=== PATIENT | female | born 1975 | race Caucasian/White ===

== ENCOUNTER → 2016-11-22 | Outpatient (CLI) | payer OTHER ==
--- NOTE | 2016-11-22 16:55 | MAMMOGRAPHY REPORT ---
BILATERAL DIGITAL DIAGNOSTIC MAMMOGRAM TOMOSYNTHESIS WITH CAD AND TARGETED BILATERAL ULTRASOUND: 11/05 CLINICAL HISTORY: 41-year-old woman presents for assessment in both breasts after a bilateral breast MRI demonstrated abnormalities in each breast. She was originally called back from screening mammo graphy for and angular asymmetry and possible distortion in the far posterior medial right breast, b ut no sonographic correlate was identified at an outside institution. Family history of breast canc er = niece. TECHNIQUE: Bilateral CC and MLO 2-D digital and tomosynthesis images were obtained. Current study w as also evaluated with a Computer Aided Detection (CAD) system. COMPARISON: Comparison is made to exams dated: 09/11/2016 breast MRI, 03/07/2016 breast MRI - [facility], 02/12/2016 mammogram, 08/23/2015 mammogram, 02/16/2015 mammogram, and 01/26/2015 m ammogram. BREAST COMPOSITION: There are scattered areas of fibroglandular density in both breasts. FINDINGS: The breast bregma pattern is similar to prior outside mammograms. There is persistent as ymmetry in the slightly medial, far posterior right breast, best seen on the CC view. However, on t he tomosynthesis images this area has the appearance of normal fibroglandular tissue. There is no s uspicious spiculation or architectural distortion. No other suspicious mass, architectural distorti on or cluster of microcalcifications is seen bilaterally. There is an island of effacing fibrogland ular tissue in the far posterior 11:30 to 12:00 left breast which may correlate with the 8 mm irregu lar asymmetry seen on recent breast MRI. No definite abnormality is seen mammographically to correl ate with the 8.5 mm enhancing mass in the 5:00 anterior right breast on MRI. Targeted ultrasound was performed in the upper inner quadrant of the left breast, 5:00 and upper inn er quadrant of the right breast. In the right 5:00 breast, 2 cm from the nipple, there is a curvili near hypoechoic solid versus cystic mass measuring 5.9 x 2.0 x 4.5 mm. This may possibly correlate with the MRI finding and has a benign appearance. Nevertheless, a short interval follow-up is recom mended to ensure stability. There is an island of dense fiber glandular tissue and interspersed hyp oechoic milk ducts in the 12:00 right breast, 9 cm from the nipple, which may cause the appearance o f an asymmetry mammographically. Similar island of dense fibroglandular tissue and interspersed mil k duct is seen in the 11:00 left breast, 12 cm from the nipple, thought to correlate with both the m ammographic asymmetry and possibly the irregular enhancement seen on MRI. Overall, there is no defi nite sonographic evidence of malignancy. Would recommend repeat MRI in 6 months to ensure at least one year stability of the above findings also repeat targeted ultrasound in the left 11:00 and right 5:00 axes with possible additional ultrasound and/or mammographic views pending MRI results. IMPRESSION: ACR-BI-RADS CATEGORY 3: PROBABLY BENIGN, TARGETED ULTRASOUND ACR-BI-RADS CATEGORY 3: HI OBABLY BENIGN A follow-up breast MRI is recommended in 6 months to ensure stability of probably benign findings wi thout suspicious mammographic or sonographic correlates on the current diagnostic exam. Pending fol low-up MRI, repeat targeted ultrasound should at least be performed in the 11:00 left breast and 5:0 0 right breast to ensure stability of those sonographic findings. Overall, there is no definite ben mographic or targeted sonographic evidence of malignancy. These results and recommendations were discussed with the patient at the time of the exam. She tent atively scheduled a follow-up appointment prior to leaving our department. Approximately 10% of breast cancers are not detected with mammography. A negative mammographic repor t should not delay biopsy if a clinically suggestive mass is present. Angela Watkins M.D. ay/:11/22/2016 15:44:29 Crisis Mental Health Therapist: Jada Kimball, [facility] letter sent: Follow Up Recommended 3 BI-RADS Code: ACR-BI-RADS Category 3: Probably Benign Ultrasound BI-RADS: ACR-BI-RADS Category 3: P robably Benign
== END | disposition home or self-care (01) ==
LOC: C.MAMM 14:10
PROVIDERS: ATTEND Surgery
DX: N64.9 Disorder of breast, unspecified (principal)

== ENCOUNTER → 2017-05-23 | Outpatient (CLI) | payer OTHER ==
[~2017-05-23] MED LIST: GADAVIST IV PRN
--- NOTE | 2017-05-24 12:10 | MAMMOGRAPHY REPORT ---
BREAST MRI OF BOTH BREASTS : 05/23/2017 CLINICAL HISTORY: 41-year-old woman presents for follow-up in both breasts. She was initially called back from screening for an asymmetry in the far posterior right breast. No suspicious enhancing mas s was seen on MRI to correlate and this asymmetry appeared less prominent on follow-up mammograms. O n the most recent prior breast MRI, a small, 5 mm enhancing ovoid focus was identified in the 5:00 ri ght breast. Second look ultrasound did not demonstrate any suspicious masses but a probable cyst. A lso follow-up of an angular 8 mm asymmetry versus island of glandular tissue in the upper inner poste rior left breast. No strong family history of breast cancer. COMPARISON: Comparison is made to exams dated: 11/22/2016 ultrasound, 11/22/2016 mammogram, 09/11/2016 breast MRI, 03/07/2016 breast MRI - [facility], 02/12/2016 mammogram, and 08/23/2015 ma mmogram. TECHNIQUE: Using a 1.5 Robyn magnet and dedicated breast coil, multisequence axial images were obtain ed through the breasts. After uneventful IV administration of 6.5 mL of Gadavist, dynamic multiphase contrast-enhanced axial images, and sagittal postcontrast were obtained. Temporal subtraction axial images and 3-D MIP images are provided. Everything was then reviewed on a 3-D workstation, [employer]. FINDINGS: Right breast: There is mild background parenchymal enhancement of the right breast. The previously o bserved 5 mm ovoid enhancing focus in the 5:00 anterior right breast is less conspicuous on the axial images. There is no abnormal associated kinetics. There is no evidence of a new suspicious enhanci ng mass, focal area of architectural distortion, non-mass enhancement or suspicious kinetics in the r ight breast. No focal skin thickening or nipple retraction area the retromammary fat is intact. No suspicious right axillary lymphadenopathy. Left breast: The 8 mm angular asymmetry in the upper inner posterior, 11:00 axis, of the left breast is increased in size and conspicuity comparing to the prior breast MRI performed September 2016. It c urrently measures approximately 15 x 10 mm, previously 14 x 8 mm. However, there are currently no as sociated suspicious kinetics or definite evidence of enhancement. Targeted second look ultrasound is recommended. This likely correlates with the previously seen mixed echogenicity lesion in the 11:00 breast on prior ultrasound. There is another focal area of non-mass enhancement/asymmetry located i n the 12:00 middle one third of the left breast, measuring 7.0 x 6.8 x 4.2 mm (axial page 42/116 and sagittal page 28/116). This demonstrates persistent kinetics and is new compared to the prior MRIs. Targeted second look ultrasound is recommended. No other suspicious enhancing mass, non-mass enhanc ement, focal architectural distortion or suspicious kinetics is identified in left breast. No focal skin thickening or nipple retraction. No suspicious left axillary lymphadenopathy. IMPRESSION: ACR BI-RADS CATEGORY 4: SUSPICIOUS 1. Less conspicuous 5 mm ovoid enhancing focus in the 5:00 anterior right breast, suggesting benigni ty. No new suspicious enhancing mass, non-mass enhancement or MRI evidence of malignancy in the righ t breast. 2. Increased size and prominence but no definite associated enhancement of an angular/stellate asymm etry in the 11:00 posterior left breast, currently measuring 10 x 15 mm on MRI. Targeted ultrasound is recommended. 3. New 7 mm asymmetry with associated non-mass enhancement in the 12:00 middle one third of the left breast that is indeterminate. Targeted ultrasound is recommended. Bilateral breast ultrasound was performed on the same day targeted in the right 5:00, left 11:00 and 12:00 axes. Please refer to a separate report for full detail. It should be noted that based on the breast ultrasound, no abnormality was identified in the 12:00 left breast in the area of new 7 mm as ymmetry with associated enhancement. Given the interval development of this lesion, MRI guided biops y was recommended. These results and recommendations were discussed with the patient at the time of the exam. Angela Watkins M.D. 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
== END | disposition home or self-care (01) ==
LOC: C.MRI 08:18
PROVIDERS: ATTEND Surgery
DX: R92.8 Other abnormal and inconclusive findings on diagnostic imaging of breast (principal); N63 Unspecified lump in breast

== ENCOUNTER → 2017-05-23 | Outpatient (CLI) | payer OTHER ==
--- NOTE | 2017-05-24 15:42 | MAMMOGRAPHY REPORT ---
ULTRASOUND OF BOTH BREASTS: 05/23/2017 CLINICAL HISTORY: Six-month follow-up bilateral targeted ultrasound to follow up sonographic findings in the left 11:00 and right 5:00 breasts, that are thought to correlate with MRI findings. COMPARISON: Comparison is made to exams dated: 11/22/2016 ultrasound, 11/22/2016 mammogram - [facility], 02/12/2016 mammogram, 08/23/2015 mammogram, 02/16/2015 mammogram, and 01/26/2015 ben mogram. FINDINGS: Repeat targeted ultrasound was performed in the 11:00 left breast and 5:00 right breast. A dditional targeted ultrasound was performed from the 11:00 through 12:00 and 1:00 axes of the left br east, to assess for the new asymmetry and associated enhancement seen on the MRI performed on the . In the left 9:00 breast, 9 cm from the nipple, there is an island of glandular tissue with interspers ed tubular hypoechoic ducts, measuring approximately 13.6 x 4.0 x 12.5 mm. This has not significantl y changed comparing to the prior ultrasound at which time it measured 13.5 x 13.2 mm. However, it is increasingly prominent in size on MRI and continued follow-up is recommended. Additional ultrasound in the 11:30 to 12:00 axes of the left breast do not demonstrate any discrete s olid or cystic mass. Normal fibroglandular tissue is seen. There is no sonographic correlate to the new asymmetry seen on MRI. Targeted ultrasound performed in the 5:00, 4:00 and 6:00 axes of the right breast failed to demonstra te the curvilinear hypoechoic lesion identified on prior ultrasound. This lesion is also less conspi cuous on the current MRI, confirming benignity. IMPRESSION: ACR BI-RADS CATEGORY 4: SUSPICIOUS - FOLLOW-UP RECOMMENDED 1. There is no sonographic correlate for the new asymmetry with associated non-mass enhancement in t he 12:00 far superior left breast on MRI. Therefore this asymmetry is indeterminate and definitive c haracterization with an MRI guided biopsy is recommended, given the interval development. 2. An angular asymmetry in the 11:00 left breast is increasingly prominent on MRI, but appears stabl e sonographically. Additionally, the sonographic appearance may represent fibroglandular tissue or p ossibly PASH. Further recommendations regarding this finding will be made after MRI biopsy results a re available. 3. No suspicious or focal sonographic abnormality is currently seen in the 5:00 right breast on ultr asound. This is concordant with decreased prominence of the MRI finding as well. This is considered benign. These results and recommendations were discussed with the patient at the time of the exam. She tenta tively scheduled the left breast MRI guided biopsy prior to leaving our department. Angela Watkins M.D. ay/:05/24/2017 15:00:10 Secured Entrance Monitor: Katarzyna BRASWELL(R)(M), [facility] letter sent: Abnormal 4/5 BI-RADS Code: ACR BI-RADS Category 4: Suspicious
== END | disposition home or self-care (01) ==
LOC: C.MAMM 10:52
PROVIDERS: ATTEND Surgery
DX: Z09 Encounter for follow-up examination after completed treatment for conditions other than malignant neoplasm (principal); R92.8 Other abnormal and inconclusive findings on diagnostic imaging of breast; N64.89 Other specified disorders of breast

== ENCOUNTER → 2017-06-06 | Outpatient (CLI) | payer OTHER ==
[~2017-06-06] MED LIST changes: +LIDO/EPINEPHRINE/SOD BICARB 20 ML VIAL INFIL ONE; +XYLOCAINE 1%/SOD BICARB 20 ML VIAL INFIL ONE
--- NOTE | 2017-06-06 11:49 | Discharge Instructions ---
Discharge Instructions Procedure Procedure Date: Jun 06, 2017. Reason for visit: Abnormal Mri. Discharge Discharge Date: Jun 06, 2017. Discharge Diagnosis: status post breast biopsy Instructions Activity Recommendations: Additional Limitations (see below) Return to School/Work: no limitations Recommended Home Diet: No Limitations Provider Instructions: ACTIVITY RECOMMENDATIONS: * No lifting, pushing, pulling or exercising the affected side for three days. RETURN TO SCHOOL/WORK: * You may return to work/school after the procedure, but do not perform any strenuous activities for 24 to 48 hours. MEDICATIONS: * Tylenol (two 325 mg) every four to six hours if needed for mild pain (if not allergic to Tylenol). DIET: * Resume previous diet. SPECIAL CARE INSTRUCTIONS: * Keep biopsy site dry for 24 hours. May shower after 24 hours, but do not soak (bathe) incision. * May remove Tegaderm (plastic patch) tomorrow AFTER showering. * Leave the steri-strips on for one week. Allow the steri-strips to fall off by themselves. If not off after one week, you may remove them. You may place a Bandaid crosswise over the strips, if desired. * Apply ice 10 minutes on and 10 minutes off as needed. * Wear a bra at bedtime to sleep more comfortably for 2-3 days. * Your referring physician should have the results after approximately 5 to 7 business days. * Call for unusual bleeding, fever, drainage, etc or if you have any questions call during normal business hours or after hours call Dr Whyte, . FOLLOW UP VISIT: Follow-up with Referring Physician as scheduled. Nakul Selby Recommendations: Call your doctor if: * Temperature above 101 degrees * Pain not relieved by pain medicine ordered * There is increased drainage or redness from any incision * You have any unanswered questions or concerns. Your Doctors Instructions noted above were prepared by provider Payton Whyte. Patient Signature Section: Patient Instructions Signature Page Amrita Josh Patient (or Guardian) Signature/Date: I have read and understand the instructions given to me by my caregivers. Caregiver/RN/Doctor Signature/Date: The above-named patient and/or guardian has received patient instructions on this date. + Original Patient Signature Page (only) stays with chart. Please make copy for patient.
--- NOTE | 2017-06-06 13:41 | MAMMOGRAPHY REPORT ---
THIS REPORT HAS BEEN AMENDED. MRI BIOPSY LEFT BREAST: 06/06/2017 CLINICAL HISTORY: Area of non-mass enhancement in the left 12:00 breast seen on recent breast MRI. COMPARISON: Comparison is made to exams dated: 05/23/2017 ultrasound, 05/23/2017 breast MRI, 11/22/2016 ultrasound, 11/22/2016 mammogram, 09/11/2016 breast MRI, and 03/07/2016 breast MRI - [facility]. Technique: Written informed consent was obtained from the patient after discussion of the procedure a s well as risks of MRI guided core needle biopsy. A preprocedural timeout was performed prior to sta rting the procedure. The patient was placed prone on a 1.5 Robyn MR scanner. The lateral aspect of the left breast was cl eansed with ChloraPrep. The left breast was positioned in a dedicated breast coil and MRI guidance g rid device. After localizing sequences were obtained, pre-and postcontrast axial sequences were performed which c onfirm the persistence of the non-mass enhancement in the left 12:00 breast. 6.5 mL of Gadavist IV c ontrast was administered. Using the images, targeting was performed using the [email or web address] software. The skin was prepped with Betadine through the grid and after local anesthesia was achieved, an intro ducer sheath and localizing obturator were placed into the site using a lateral approach. The locati on of the obturator sheath was confirmed with additional images. Subsequently, multiple samples were obtained from the site using a Suros 9-gauge vacuum-assisted core biopsy device. Through the introducer sheath, a marker clip was placed. Postprocedural images demo nstrate postbiopsy changes in the expected location of the enhancing lesion. Direct pressure was hel d at the biopsy site until hemostasis was achieved. The patient tolerated the procedure without immediate complication. Mammography was obtained at the breast center after completion of the biopsy to confirm marker clip placement. [facility] for further details. The specimens were sent to pathology for analysis. Wo und care instructions were given to the patient. IMPRESSION: MRI BIOPSY MRI guided core needle biopsy of the mass enhancement in the left 12:00 breast, with clip placement. The patient will receive pathology results from her referring provider. Pending benign pathology re kori, recommend follow-up bilateral breast MRI in 6 months. Payton Whyte M.D. 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 The pathology from MRI guided biopsy of non-mass enhancement in the left 2 o'clock breast yielded katerine ign-appearing fibroadipose and breast tissue. The pathology is concordant with the imaging findings. Recommend follow-up bilateral breast MRI in 6 months.
--- NOTE | 2017-06-06 13:43 | MAMMOGRAPHY REPORT ---
UNILATERAL LEFT DIGITAL DIAGNOSTIC MAMMOGRAM: 06/06/2017 CLINICAL HISTORY: Status post MRI guided biopsy of the left breast. TECHNIQUE: Postprocedural left CC and ML views were obtained. COMPARISON: Comparison is made to exams dated: 05/23/2017 ultrasound, 05/23/2017 breast MRI, 06/06/2017 MRI biopsy, and 11/22/2016 ultrasound - [facility]. BREAST COMPOSITION: There are scattered areas of fibroglandular density in the left breast. FINDINGS: A new biopsy marker clip is seen within the left upper outer quadrant status post MRI guid ed biopsy of the non-mass enhancement in the left 12:00 breast. There is possible lateral migration of the biopsy marker clip from the biopsy site by approximately 3-4 cm, likely due to accordion effec t. No significant postbiopsy hematoma is seen. IMPRESSION: POST PROCEDURE IMAGING FOR MARKER PLACEMENT New biopsy marker clip status post MRI guided biopsy of the left breast. Pathology results are pendi ng. Approximately 10% of breast cancers are not detected with mammography. A negative mammographic report should not delay biopsy if a clinically suggestive mass is present. Payton Whyte M.D. /:06/06/2017 13:31:39 Operations Leader: Jada Kimball, [facility] BI-RADS Code: Post Procedure Imaging For Marker Placement
== END | disposition home or self-care (01) ==
LOC: C.MRI 10:51
PROVIDERS: ATTEND Surgery
DX: R93.8 Abnormal findings on diagnostic imaging of other specified body structures (principal)

== ENCOUNTER → 2017-11-30 | Outpatient (CLI) | payer OTHER ==
--- NOTE | 2017-12-03 15:50 | MAMMOGRAPHY REPORT ---
BILATERAL DIGITAL DIAGNOSTIC MAMMOGRAM TOMOSYNTHESIS WITH CAD AND TARGETED LEFT ULTRASOUND: 11/30/2017 CLINICAL HISTORY: History of benign MRI guided core needle biopsy of the left breast. She presents f or follow-up of an asymmetry within the left breast as well as for routine mammography of the right b reast. She reports no current complaints. TECHNIQUE: Breast tomosynthesis in addition to standard 2D mammography was performed. Current study was also evaluated with a Computer Aided Detection (CAD) system. Bilateral CC and MLO 2-D and tomosy nthesis images were obtained. COMPARISON: Comparison is made to exams dated: 06/06/2017 mammogram, 06/06/2017 MRI biopsy, 05/23/2017 ul trasound, 05/23/2017 breast MRI, 11/22/2016 ultrasound, and 11/22/2016 mammogram - [facility]. BREAST COMPOSITION: There are scattered areas of fibroglandular density in both breasts. FINDINGS: There has been no significant interval change compared to prior exams. Partially visualize d asymmetry within the left upper inner quadrant posteriorly does not appear significantly changed. A biopsy marker clip is again noted within the left upper outer quadrant from prior benign MRI guided biopsy. The remainder of both breasts are stable compared to prior exams, without suspicious masses , calcifications, or areas of architectural distortion noted. Targeted ultrasound was performed of the left 11:00 breast in the region of the mammographic focal as ymmetry. Again noted is a focal mixed echogenicity, predominantly hyperechoic, region which has the appearance of fibroglandular tissue on ultrasound. The area is ill-defined but measures approximatel y 1.7 x 0.4 x 1.4 cm and does not appear significantly changed dating back to the November 2016 ultras ound exam. This corresponds with the mammographic asymmetry which is probably benign and may represe nt an island of normal fibroglandular tissue or PASH. IMPRESSION: ACR BI-RADS CATEGORY 0: INCOMPLETE EVALUATION: NEED ADDITIONAL IMAGING EVALUATION, TARG ETED ULTRASOUND ACR BI-RADS CATEGORY 0: INCOMPLETE EVALUATION: NEED ADDITIONAL IMAGING EVALUATION 1. Focal asymmetry in the left 11:00 posterior breast does not appear significantly changed mammogra phically and sonographically dating back to the November 2016 exam, and is probably benign and may rep resent an island of normal fibroglandular tissue or pseudo-angiomatous stromal hyperplasia (PASH). H owever, the area is best evaluated on MRI and the [facility] Therefore, management decisions regarding the asymmetry will be deferred until the MRI is perfo rmed. 2. No mammographic evidence of malignancy in the right breast. The patient has been verbally notified of the results. Approximately 10% of breast cancers are not detected with mammography. A negative mammographic report should not delay biopsy if a clinically suggestive mass is present. Payton Whyte M.D. ah/:11/30/2017 15:46:00 Fryline Attendant: Radha BRASWELL(Shireen)(M), [facility] letter sent: Addl Imaging 0 BI-RADS Code: ACR BI-RADS Category 0: Incomplete Evaluation: Need Additional Imaging Evaluation Ult rasound BI-RADS: ACR BI-RADS Category 0: Incomplete Evaluation: Need Additional Imaging Evaluation
== END | disposition home or self-care (01) ==
LOC: C.MAMM 13:21
PROVIDERS: ATTEND Surgery
DX: N64.89 Other specified disorders of breast (principal)

== ENCOUNTER → 2017-12-07 | Outpatient (CLI) | payer OTHER ==
[~2017-12-07] MED LIST changes: -LIDO/EPINEPHRINE/SOD BICARB 20 ML VIAL INFIL ONE; +PATIENT'S ALLERGY INFO NEEDS ENTERED SCH; -XYLOCAINE 1%/SOD BICARB 20 ML VIAL INFIL ONE
--- NOTE | 2017-12-10 07:41 | MAMMOGRAPHY REPORT ---
BREAST MRI OF BOTH BREASTS : 12/07/2017 CLINICAL HISTORY: The patient presents for short interval follow-up after benign MRI guided biopsy of the left breast. She also presents for follow-up of an asymmetry seen within the left upper inner q uadrant. COMPARISON: Comparison is made to exams dated: 11/30/2017 mammogram, 06/06/2017 mammogram, 06/06/2017 MRI biopsy, 05/23/2017 ultrasound, 05/23/2017 breast MRI, and 11/22/2016 mammogram - [facility]. Also prior breast MRIs dated 03/07/2016 and 09/11/2016. Technique: The patient was placed prone in a dedicated breast imaging coil. Precontrast axial T1-eric ghted, axial T2-weighted fat saturation, and axial T1-weighted fat saturation images were obtained. After the administration of 6 mL of Gadavist IV contrast, sequential T1-weighted fat saturation image s were obtained. Subtraction images were obtained of the dynamic contrast enhanced sequences, and 3- D reformations were performed. The [employer] software was used for kinetic analysis. Findings: Right breast: There is moderate background parenchymal enhancement. There are no suspicious enhancin g masses or areas of abnormal non-mass enhancement within the right breast. There has been no signif icant interval change compared to the prior breast MRI. Left breast: There is moderate background parenchymal enhancement. The focal area of non-mass enhanc ement seen within the left 12:00 breast superiorly is less prominent compared to the prior MRI exam. Susceptibility artifact from the biopsy marker clip is seen immediately lateral to the enhancing les ion. Given that the finding is less prominent and given the benign pathology on biopsy, the finding is considered benign. The 12 mm area of non-mass enhancement within the left upper inner quadrant po steriorly is stable compared to the November 2016 MRI exam. The finding demonstrates similar enhancem ent to the other fibroglandular tissue seen in both breasts and demonstrates no suspicious kinetics ( series 13414 image [id number]). This corresponds with a mammographic asymmetry which has been stable mammogr aphically and sonographically dating back to at least November 2016. The finding is probably benign a nd may represent an island of normal fibroglandular tissue or pseudo-angiomatous stromal hyperplasia (PASH). The remainder of the left breast is stable compared to the prior exams, without suspicious e nhancing masses or areas of abnormal non-mass enhancement seen. There is no evidence of axillary adenopathy. The chest wall structures are negative. Visualized ext ramammary soft tissues are grossly unremarkable. IMPRESSION: ACR-BI-RADS CATEGORY 3: PROBABLY BENIGN 1. The previously focal non-mass enhancement in the left 12:00 breast is less prominent, and is cons idered benign given the decreased prominence and benign pathology on biopsy. 2. Focal area of non-mass enhancement in the left upper inner quadrant posteriorly which corresponds with a mammographic asymmetry is stable compared to the November 2016 exam, and is probably benign an d may represent an island of normal fibroglandular tissue or pseudo-angiomatous stromal hyperplasia ( PASH). Recommend bilateral diagnostic tomosynthesis mammograms and possible ultrasound in 12 months to confirm longer stability of the asymmetry. 3. No MRI evidence of malignancy in the right breast. Payton Whyte M.D. 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
== END | disposition home or self-care (01) ==
LOC: C.MRI 08:27
PROVIDERS: ATTEND Surgery
DX: R92.8 Other abnormal and inconclusive findings on diagnostic imaging of breast (principal)